=== PATIENT | female | born 1945 | race Caucasian/White ===

== ENCOUNTER 2021-06-15 14:06 | Inpatient (IN) ==
[2021-06-15] MEDS ORDERED: SODIUM CHLORIDE 0.9% 500 ML IV STA (14:11)
[2021-06-15] MEDS ORDERED: NITROGLYCERIN 2% OINTMENT 30GM TUBE EXT STA (14:11)
--- NOTE | 2021-06-15 14:36 | Emergency Department Note ---
Impression & Plan Acute respiratory failure, Hypoxia, Acute renal insufficiency, Acidosis, lactic, RLL pneumonia ED Provider Note Name: DAPHNEY MONDRAGON Age: 75 Sex: F Arrives Via: Walk-In Informant: Patient, daughter ED Provider: Gerry Connelly MD Chief Complaint: Shortness of breath Impression: As per impression above Medical Decision Making: Ill-appearing 75-year-old female with a history of COPD mixed hyperlipidemia hypertension arrives for evaluation of worsening shortness of breath over the last week. She has been ill for roughly a week the last few days have been sev erely worse. She is not eating and she is very weak. She uses oxygen at home but this is no longer helping her with her shortness of breath. On arrival she was 82% on her 2 L nasal cannula. She has very poor lung sounds and is working very hard to breathe. She was placed on higher level nasal cannula oxygen started coming up but she is still quite dyspneic. Given her exam and her increased work of breathing it was felt BiPAP would be beneficial. Placing her on this she is much improved and is comfortable now. ABG reveals acidosis with moderate CO2 elevation consistent with some hypercapnia. However she does not have a much in the way of diffuse wheezing this will hold off on steroids at this time. Her chest x-ray does show a right lower lobe infiltrate and I suspect that we are dealing with a bacterial pneumonia. She was given empiric cefepime IV and MRSA nasal swab was sent to determine if further antibiotics for MRSA coverage. I will note that on arrival patient was ordered 30 mL/kg IV fluids for sepsis management in the setting of dehydrated patient with evidence of pneumonia by exam. Furthermore she has hypotension of 96/60 which is significantly low for her consistent with her sepsis appearance. After discussion with pharmacist they did advise adding on doxycycline for atypical coverage as well. She does not have any clear evidence of ACS dissection or does she have history of PE. While her BNP is somewhat elevated she has no history of CHF by exam she is dehydrated. Prior Medical Record and Triage/Nursing Notes reviewed by Me Additional history obtained from chart and daughter Differentials:Reactive airway disease, pneumonia, pneumothorax, COPD, CHF, infections, cardiac ischemia, pulmonary embolism, musculoskeletal, gastrointestinal, as well as other pathologies. amongst other pathologies. Vital Signs: reviewed and remarkable for hypoxia tachycardia hypotension Interventions: BiPAP, cefepime, doxycycline IV, 30 mL/kg IV fluids Labs:Reviewed and remarkable for lactic acidosis, Imagin view chest x-ray reveals right lower lobe infiltrate EKG:Per My Interpretation: Indication Shortness of breath: Sinus Tach 117 bpm, qtc 641. No Ectopy. No Ischemia. Compared to EKG 06/17/20, no significant changes. Cardiac/Tele Monitoring: Cardiac Monitoring: An Order was placed for continuous cardiac monitoring. The monitor shows a rate of 90 with a normal sinus rhythm. Consults:Watson kesslerist Plan: Disposition:Hospitalization. Condition: Fair History of Present Illness:75-year-old female arrives for evaluation of shortne ss of breath. For the last week she has developed worsening shortness of breath weakness and confusion. She is unable to ambulate around the house. She uses 2.5 L nasal cannula at all times for her COPD however she has not not been tolerating this recently requiring increasing amounts of oxygen. She has not been eating or drinking as she feels too weak and tired. Symptoms include shortness of breath, productive cough, junky cough, difficulty breathing. She has had no chest pain, syncope, headache, sore throat, abdominal pain, back pain, leg swelling, urinary/bowel symptoms. She has no history of severe symptoms like this before though did about 1 year ago have COVID-19. Patient with no recent changes to medications nor any recent antibiotics. Per daughter she has not been on any recent steroids. She is an inhaler at home which has not been helping the symptoms. ROS: See above HPI for pertinent positives & negatives. A total of 10 systems reviewed and were otherwise negative. Past Medical History:See Below Past Surgical History:See Below Family History:See Below Social History:See Below Home Medications:See Below Allergies:See Below Vitals:Blood Pressure: 93/60, Pulse 116, RR 22, T 36.0C, O2 86% on 6L NC Physical Exam: GENERAL: Patient is ills/cachectic appearing and in moderate distress. EYES: No scleral icterus, unremarkable pupils. ENT: Mucous membranes dry, no nasal congestion. NECK: No masses appreciated, nomeningismus, trachea is midline. RESPIRATORY: Tachypnea, dyspnea, decreased breath sounds throughout with crackles all lung diaz CARDIOVASCULAR: Tachy.No murmurs, rubs, gallops appreciated. GASTROINTESTINAL: Abdomen soft, non-tender, no peritonitis.Bowel sounds positive.No masses appreciated. BACK: No midline tenderness, no CVA tenderness EXTREMITIES: Normal motion all extremities, no cyanosis, no edema. NEUROLOGIC: Tired, mildly confused, generalized weakness, no acute motor or sensory deficits, no focal weakness, cranial nerves grossly intact. SKIN: No rash, no jaundice, no diaphoresis. PSYCH: Appropriate GCS: 15 ED Course: Times/Reassessments: Patient appears vastly improved once on BiPAP she is comfortable she is breathing without distress Critical Care: I have personally spent 45 minutes of critical care time in the direct management of this patient. Acute respiratory failure requiring BiPAP for grisel del cid secondary to right lower lobe pneumonia. This was a life/limb threatening event. This 45 minutes is in excess of all separately billable procedures. eGrry Connelly MD Past Med/Surg History Medical History COPD (chronic obstructive pulmonary disease) COVID-19 Hyperlipidemia Hypertension Surgical History Hx of tubal ligation S/P cholecystectomy Social History Smoking Status: Never smoker Preferred Language: Slovenian Feels Safe at Home: Yes Allergies Allergies Allergy/AdvReac Type Severity Reaction Status Date / Time grape Allergy Intermediate edema of Verified 06/15/21 16:26 lips Home Meds Home Medications Medication Instructions Recorded Confirmed albuterol sulfate 90 mcg/actuation 2 puff INHALATION Q6H PRN gm 03/14/19 06/15/21 aerosol inhaler aspirin 81 mg tablet,delayed 81 mg PO QAM tab 03/14/19 06/15/21 release budesonide-formoterol HFA 160 2 puffs INHALATION BID #1 gm 03/14/19 06/15/21 mcg-4.5 mcg/actuation aerosol inhaler multivitamin (Daily Multi-Vitamin) 1 tab PO QAM 03/14/19 06/15/21 ipratropium 20 mcg-albuterol 100 1 puff INHALATION QID 06/17/20 06/15/21 mcg/actuation mist for inhalation (Combivent Respimat) lisinopril 40 mg tablet 40 mg PO QAM 06/17/20 06/15/21 oxybutynin chloride 10 mg 10 mg PO QAM 06/17/20 06/15/21 tablet,extended release 24 hr rosuvastatin 10 mg tablet 10 mg PO QPM 06/17/20 06/15/21 sertraline 100 mg tablet 100 mg PO QAM 06/17/20 06/15/21 felodipine 2.5 mg tablet,extended 2.5 mg PO DAILY 06/15/21 06/15/21 release 24 hr metoprolol succinate 50 mg 50 mg PO BID 06/15/21 06/15/21 tablet,extended release 24 hr risedronate 35 mg tablet 35 mg PO WK 06/15/21 06/15/21 Results & Data (ED) Vital Signs Vital Signs - 24 hr 06/15/21 14:10 06/15/21 14:15 06/15/21 14:57 Temperature 36.0 C L Temperature Source Temporal Artery Scan Pulse Rate 116 H Pulse Rate [Left Finger] Pulse Rhythm [Left Finger] Pulse Strength [Left Finger] Respiratory Rate 22 Respiratory Effort / Characteristics Non-Labored Spontaneous Respiratory Depth Normal Respiratory Pattern Regular Blood Pressure 93/60 L Blood Pressure [Left Arm] Blood Pressure Mean 71 Blood Pressure Mean [Left Arm] Blood Pressure Position [Left Arm] Pulse Oximetry 82 L 86 L 94 Oxygen Delivery Method Nasal Cannula Nasal Cannula Nasal Cannula Oxygen Flow Rate 2 6 4 Fraction of Inspired Oxygen SaO2/FiO2 Ratio Sepsis Recent Fever Within 48 Hours No Sepsis New/Unexplained Change in Mental Status No Sepsis Action Taken by Nursing No Action Required 06/15/21 15:20 06/15/21 16:00 06/15/21 16:20 Temperature Temperature Source Pulse Rate 114 H Pulse Rate [Left Finger] 105 H Pulse Rhythm [Left Finger] Regular Pulse Strength [Left Finger] Normal Respiratory Rate 24 18 Respiratory Effort / Characteristics Spontaneous Short of Breath Non-Labored Respiratory Depth Shallow Normal Respiratory Pattern Tachypnea Regular Blood Pressure Blood Pressure [Left Arm] 118/79 Blood Pressure Mean Blood Pressure Mean [Left Arm] 92 Blood Pressure Position [Left Arm] Lying Pulse Oximetry 96 98 Oxygen Delivery Method BiPAP Oxygen Flow Rate Fraction of Inspired Oxygen 70 70 50 SaO2/FiO2 Ratio 140 Sepsis Recent Fever Within 48 Hours Sepsis New/Unexplained Change in Mental Status Sepsis Action Taken by Nursing Laboratory Data Result diagrams: 06/15/21 15:03 06/15/21 15:03 Lab Results 06/15/21 06/15/2121 Range/Units 15:00 15:03 15:03 WBC 8.44 (4.8-10.8) K/uL RBC 4.65 (4.2-5.4) M/uL Hgb 14.2 (12.0-16.0) g/dL Hct 43.5 (37-47) % MCV 93.5 (80-100) fL MCH 30.5 (25-34) pg MCHC 32.6 (32-36) g/dL RDW Std Deviation 46.2 (36.4-46.3) fL RDW Coeff of Evonne 13.5 (11.5-14.5) % Plt Count 292 (130-400) K/uL MPV 11.1 H (7.4-10.4) fL Immature Gran % (Auto) 1.5 % Neut % (Auto) 81.0 % Lymph % (Auto) 6.9 % [place] % (Auto) 10.0 % Eos % (Auto) 0.1 % Baso % (Auto) 0.5 % Neut # (Auto) 6.84 H (1.4-6.5) K/uL Lymph # (Auto) 0.58 L (1.2-3.4) K/uL [place] # (Auto) 0.84 H (0.11-0.59) K/uL Eos # (Auto) 0.01 (0-0.5) K/uL Baso # (Auto) 0.04 (0-0.2) K/uL Immature Gran # (Auto) 0.13 H (0.00-0.02) K/uL Absolute Nucleated RBC 0.02 H (0-0) K/uL Nucleated RBC % (auto) 0.3 % VBG pH 7.26 L (7.36-7.41) VBG pCO2 76 H (38-50) mmHg VBG pO2 44 mmHg VBG HCO3 33 mmol/L VBG O2 Saturation 72.4 % VBG Base Excess 3.5 mEq/L Barometric Pressure 736.3 mm/Hg Sodium 142 (136-145) mmol/L Potassium 3.6 (3.5-5.1) mmol/L Chloride 98 (98-107) mmol/L Carbon Dioxide 31 (21-32) mmol/L Anion Gap 13.0 H (3-11) BUN 30 H (7-18) mg/dl Creatinine 1.43 H (0.6-1.2) mg/dl Est Cr Clr Drug Dosing 19.2 ml/min Est GFR ( Amer) 41.4 ml/min Est GFR (Non-Af Amer) 35.7 ml/min BUN/Creatinine Ratio 21.0 H (10-20) Glucose 151 H (70-99) mg/dl Lactate (0.4-2.0) mmol/L Calcium 10.2 H (8.5-10.1) mg/dl Total Bilirubin 0.6 (0.2-1) mg/dl AST 43 H (15-37) U/L ALT 32 (12-78) Alkaline Phosphatase 55 (45-117) U/L Troponin I < 0.015 (0-0.045) ng/ml NT-Pro-B Natriuret Pep 4191 H (0-900) pg/ml Total Protein 7.9 (6.4-8.2) gm/dl Albumin 3.2 L (3.4-5.0) gm/dl Globulin 4.7 H (2.5-4.0) gm/dl Albumin/Globulin Ratio 0.7 L (0.9-2) Lipase 42 L (73-393) U/L Adenovirus (PCR) (NotDetected) B. pertussis DNA (PCR) (NotDetected) B.parapertussis DNA PCR (NotDetected) C. pneumoniae DNA (PCR) (NotDetected) Coronavirus OC43 (PCR) (NotDetected) Coronavirus HKU1 (PCR) (NotDetected) Coronavirus 229E (PCR) (NotDetected) SARS-CoV-2 (PCR) (NotDetected) Coronavirus NL63 (PCR) (NotDetected) Human Metapneumovir PCR (NotDetected) Influenza A (H3) PCR (NotDetected) Influenza Type B (PCR) (NotDetected) M. pneumoniae (PCR) (NotDetected) Parainfluenza 1 (PCR) (NotDetected) Parainfluenza 2 (PCR) (NotDetected) Parainfluenza 3 (PCR) (NotDetected) Parainfluenza 4 (PCR) (NotDetected) RSV (PCR) (NotDetected) Entero/Rhino (PCR) (NotDetected) 06/15/21 06/15/21 Range/Units 15:03 15:09 WBC (4.8-10.8) K/uL RBC (4.2-5.4) M/uL Hgb (12.0-16.0) g/dL Hct (37-47) % MCV (80-100) fL MCH (25-34) pg MCHC (32-36) g/dL RDW Std Deviation (36.4-46.3) fL RDW Coeff of Evonne (11.5-14.5) % Plt Count (130-400) K/uL MPV (7.4-10.4) fL Immature Gran % (Auto) % Neut % (Auto) % Lymph % (Auto) % [place] % (Auto) % Eos % (Auto) % Baso % (Auto) % Neut # (Auto) (1.4-6.5) K/uL Lymph # (Auto) (1.2-3.4) K/uL [place] # (Auto) (0.11-0.59) K/uL Eos # (Auto) (0-0.5) K/uL Baso # (Auto) (0-0.2) K/uL Immature Gran # (Auto) (0.00-0.02) K/uL Absolute Nucleated RBC (0-0) K/uL Nucleated RBC % (auto) % VBG pH (7.36-7.41) VBG pCO2 (38-50) mmHg VBG pO2 mmHg VBG HCO3 mmol/L VBG O2 Saturation % VBG Base Excess mEq/L Barometric Pressure mm/Hg Sodium (136-145) mmol/L Potassium (3.5-5.1) mmol/L Chloride (98-107) mmol/L Carbon Dioxide (21-32) mmol/L Anion Gap (3-11) BUN (7-18) mg/dl Creatinine (0.6-1.2) mg/dl Est Cr Clr Drug Dosing ml/min Est GFR ( Amer) ml/min Est GFR (Non-Af Amer) ml/min BUN/Creatinine Ratio (10-20) Glucose (70-99) mg/dl Lactate 3.6 H* (0.4-2.0) mmol/L Calcium (8.5-10.1) mg/dl Total Bilirubin (0.2-1) mg/dl AST (15-37) U/L ALT (12-78) Alkaline Phosphatase (45-117) U/L Troponin I (0-0.045) ng/ml NT-Pro-B Natriuret Pep (0-900) pg/ml Total Protein (6.4-8.2) gm/dl Albumin (3.4-5.0) gm/dl Globulin (2.5-4.0) gm/dl Albumin/Globulin Ratio (0.9-2) Lipase (73-393) U/L Adenovirus (PCR) Not Detected (NotDetected) B. pertussis DNA (PCR) Not Detected (NotDetected) B.parapertussis DNA PCR Not Detected (NotDetected) C. pneumoniae DNA (PCR) Not Detected (NotDetected) Coronavirus OC43 (PCR) Not Detected (NotDetected) Coronavirus HKU1 (PCR) Not Detected (NotDetected) Coronavirus 229E (PCR) Not Detected (NotDetected) SARS-CoV-2 (PCR) Not Detected (NotDetected) Coronavirus NL63 (PCR) Not Detected (NotDetected) Human Metapneumovir PCR Not Detected (NotDetected) Influenza A (H3) PCR DETECTED A* (NotDetected) Influenza Type B (PCR) Not Detected (NotDetected) M. pneumoniae (PCR) Not Detected (NotDetected) Parainfluenza 1 (PCR) Not Detected (NotDetected) Parainfluenza 2 (PCR) Not Detected (NotDetected) Parainfluenza 3 (PCR) Not Detected (NotDetected) Parainfluenza 4 (PCR) Not Detected (NotDetected) RSV (PCR) Not Detected (NotDetected) Entero/Rhino (PCR) Not Detected (NotDetected) Administered Medications Doxycycline Hyclate 100 mg/ (Dextrose) 110 mls @ 50 mls/hr IV NOW STA Stop: 06/15/21 16:50 Last Admin: 06/15/21 15:39 Dose: 50 mls/hr Documented by: [id number] Discontinued Medications Sodium Chloride (Nss) 500 mls @ 999 mls/hr IV .Q31M STA Stop: 06/15/21 14:41 Last Admin: 06/15/21 15:24 Dose: Not Given Documented by: [id number] Sodium Chloride (Nss 1000ml) 1,000 mls @ 999 mls/hr IV .Q1H1M ONE Stop: 06/15/21 15:37 Last Infusion: 06/15/21 16:28 Dose: 0 mls/hr Documented by: [id number] Admin: 06/15/21 15:24 Dose: 999 mls/hr Documented by: [id number] Sodium Chloride (Nss) 500 mls @ 999 mls/hr IV .Q31M ONE Stop: 06/15/21 15:07 Last Infusion: 06/15/21 16:29 Dose: 0 mls/hr Documented by: [id number] Admin: 06/15/21 15:24 Dose: 999 mls/hr Documented by: [id number] Cefepime HCl (Maxipime) 2,000 mg in 20 mls @ 5 mls/min IV NOW STA; Protocol Stop: 06/15/21 14:41 Last Admin: 06/15/21 15:24 Dose: 5 mls/min Documented by: [id number] Nitroglycerin (Nitroglycerin 2% Ointment 30gm Tube) 0.5 inch EXT NOW STA Stop: 06/15/21 14:12 Last Admin: 06/15/21 15:24 Dose: Not Given Documented by: [id number] Imaging Data Radiologist's Impression: Chest X-Ray 06/15/21 14:11 XR chest 1V portable HISTORY: 75 years-old Female Chest Pain Atypical chest pain COMPARISON: Chest radiograph 06/17/2020, chest CT 09/23/2016 TECHNIQUE: Portable AP view of the chest FINDINGS: The cardiomediastinal and hilar silhouettes are unchanged. Emphysema with severe bullous changes of the left lung base again noted. No pneumothorax or large pleural effusion. Patchy airspace opacities of the right lung base, new from prior. Mild interstitial coarsening throughout the right lung has progressed. Degenerative changes of the shoulders and spine. IMPRESSION: 1. Right basilar opacities are suggestive of pneumonia versus aspiration pneumonitis. 2. Severe emphysema. ACT 112: Negative or not required by law. The above report was generated using voice recognition software. It may contain grammatical, syntax or spelling errors. Electronically signed by: Bhargav Gage M.D. 06/15/2021 2:40 PM Discharge Plan Visit Data Chief Complaint: Respiratory Problems Stated Complaint: BAD COLD/COPD/SOB ED Provider: Gerry Connelly Discharge Problem: Acute respiratory failure, Hypoxia, Acute renal insufficiency, Acidosis, lactic, RLL pneumonia Forms Stand Alone Forms: [employer] Prescriptions Prescriptions: No Action Symbicort 160-4.5 mcg/actuation HFA aerosol inhaler 2 puffs inhalation BID Qty: 1 RF: 0 albuterol sulfate 90 mcg/actuation HFA aerosol inhaler 2 puff inhalation Q6H PRN (Reason: Shortness Of Breath Or Wheezing) RF: 0 aspirin 81 mg tablet,delayed release (DR/EC) 81 mg PO QAM RF: 0 multivitamin [Daily Multi-Vitamin] tablet 1 tab PO QAM RF: 0 oxybutynin chloride 10 mg tablet extended release 24hr 10 mg PO QAM RF: 0 sertraline 100 mg tablet 100 mg PO QAM RF: 0 lisinopril 40 mg tablet 40 mg PO QAM RF: 0 rosuvastatin 10 mg tablet 10 mg PO QPM RF: 0 Combivent Respimat 20-100 mcg/actuation mist 1 puff INHALATION QID RF: 0 felodipine 2.5 mg tablet extended release 24 hr 2.5 mg PO DAILY RF: 0 metoprolol succinate 50 mg tablet extended release 24 hr 50 mg PO BID RF: 0 risedronate 35 mg tablet 35 mg PO WK RF: 0 Referrals Referrals: Drake Saini DO [Primary Care Provider] - Discharge Problem: Acute respiratory failure Qualifiers: Respiratory failure complication: hypoxia and hypercapnia Qualified Code(s): J96.01 - Acute respiratory failure with hypoxia RLL pneumonia Qualifiers: Pneumonia type: due to unspecified organism Qualified Code(s): J18.9 - Pneumonia, unspecified organism
[2021-06-15] MEDS ORDERED: SODIUM CHLORIDE 0.9% 500 ML IV ONE (14:37)
[2021-06-15] MEDS ORDERED: SODIUM CHLORIDE 0.9% 1000ML 1,000 ML IV ONE (14:37)
[2021-06-15] MEDS ORDERED: CEFEPIME 2,000 MG/20 ML VIAL IV STA (14:38)
[2021-06-15] MEDS ORDERED: DOXYCYCLINE HYCLATE 100 MG in DEXTROSE 5% 100 ML IV STA (14:39)
--- NOTE | 2021-06-15 14:42 | XRay Report ---
XR chest 1V portable HISTORY: 75 years-old Female Chest Pain Atypical chest pain COMPARISON: Chest radiograph 06/17/2020, chest CT 09/23/2016 TECHNIQUE: Portable AP view of the chest FINDINGS: The cardiomediastinal and hilar silhouettes are unchanged. Emphysema with severe bullous changes of t he left lung base again noted. No pneumothorax or large pleural effusion. Patchy airspace opacities o f the right lung base, new from prior. Mild interstitial coarsening throughout the right lung has pro gressed. Degenerative changes of the shoulders and spine. IMPRESSION: 1. Right basilar opacities are suggestive of pneumonia versus aspiration pneumonitis. 2. Severe emphysema. ACT 112: Negative or not required by law. The above report was generated using voice recognition software. It may contain grammatical, syntax o r spelling errors. Electronically signed by: Bhargav Gage M.D. 06/15/2021 2:40 PM
[2021-06-15 15:12] LABS: Hematocrit (blood only) 43.5 % (37-47); Hemoglobin 14.2 g/dL (12.0-16.0); Mean Corpuscular Hemoglobin 30.5 pg (25-34); Mean Corpuscular Hgb Conc 32.6 g/dL (32-36); Mean Corpuscular Volume 93.5 fL (80-100); Mean Platelet Volume 11.1 fL (7.4-10.4); Nucleated RBC # (auto) 0.02 K/uL (0-0); Nucleated RBC % (auto) 0.3 %; Platelet Count 292 K/uL (130-400); RDW Coefficient of Variation 13.5 % (11.5-14.5); RDW Standard Deviation 46.2 fL (36.4-46.3); Red Blood Count 4.65 M/uL (4.2-5.4); White Blood Count 8.44 K/uL (4.8-10.8)
[2021-06-15 15:31] LABS: Alanine Aminotransferase 32 (12-78); Albumin Level 3.2 gm/dl (3.4-5.0); Aspartate Aminotransferase 43 U/L (15-37); Blood Urea Nitrogen 30 mg/dl (7-18); Calcium 10.2 mg/dl (8.5-10.1); Carbon Dioxide 31 mmol/L (21-32); Chloride 98 mmol/L (98-107); Creatinine Clr Calc Pharmacy 19.2 ml/min; Est GFR (African American) 41.4 ml/min; Est GFR (Non-African American) 35.7 ml/min; Glucose 151 mg/dl (70-99); Lipase 42 U/L (73-393); Potassium 3.6 mmol/L (3.5-5.1); Sodium 142 mmol/L (136-145)
[2021-06-15 15:35] LABS: Albumin Globulin Ratio 0.7 (0.9-2); Alkaline Phosphatase 55 U/L (45-117); Bilirubin,Total 0.6 mg/dl (0.2-1); Globulin 4.7 gm/dl (2.5-4.0); NT Pro B Type Natriuretic Pept 4191 pg/ml (0-900); Total Protein 7.9 gm/dl (6.4-8.2); Troponin I < 0.015 ng/ml (0-0.045)
[2021-06-15 15:38] LABS: Basophils # (auto) 0.04 K/uL (0-0.2); Basophils % (auto) 0.5 %; Eosinophils # (auto) 0.01 K/uL (0-0.5); Eosinophils % (auto) 0.1 %; Immature Granulocytes # (auto) 0.13 K/uL (0.00-0.02); Immature Granulocytes % (auto) 1.5 %; Lymphocytes # (auto) 0.58 K/uL (1.2-3.4); Lymphocytes % (auto) 6.9 %; Monocytes # (auto) 0.84 K/uL (0.11-0.59); Neutrophils # (auto) 6.84 K/uL (1.4-6.5)
[2021-06-15 16:04] LABS: Base Excess VBG 3.5 mEq/L; Oxygen Saturation VBG 72.4 %; pH VBG 7.26 (7.36-7.41)
[2021-06-15 16:17] LABS: Adenovirus PCR Not Detected (NotDetected); Bordetella parapertussis PCR Not Detected (NotDetected); Bordetella pertussis PCR Not Detected (NotDetected); Chlamydia pneumoniae PCR Not Detected (NotDetected); Coronavirus 229E PCR Not Detected (NotDetected); Coronavirus CoV-2 (COVID19)PCR Not Detected (NotDetected); Coronavirus HKU1 PCR Not Detected (NotDetected); Coronavirus NL63 PCR Not Detected (NotDetected); Coronavirus OC43PCR Not Detected (NotDetected); Human Metapneumovirus PCR Not Detected (NotDetected); Influenza B PCR Not Detected (NotDetected); Mycoplasma pneumoniae PCR Not Detected (NotDetected); Parainfluenza Virus 1 PCR Not Detected (NotDetected); Parainfluenza Virus 2 PCR Not Detected (NotDetected); Parainfluenza Virus 3 PCR Not Detected (NotDetected); Parainfluenza Virus 4 PCR Not Detected (NotDetected); Respiratory Syncytial VirusPCR Not Detected (NotDetected); Rhinovirus/Enterovirus PCR Not Detected (NotDetected)
[2021-06-15 16:41] LABS: Influenza A (H3) PCR DETECTED (NotDetected)
--- NOTE | 2021-06-15 19:26 | History & Physical Report ---
Date of Service June 15, 2021 Assessment & Plan (1) Acute hypercapnic respiratory failure: (2) Hypoxia: (3) Pneumonia and influenza: (4) ALESIA (acute kidney injury): (5) COPD (chronic obstructive pulmonary disease): (6) Hypertension: (7) Hyperlipidemia: Plan: Acute on Chronic respiratory failure with hypoxia: -2/2 influenza + bacterial pneumonia -COVID neg -will start the pt on renally dosed Tamiflu (even though it has be more than 72hrs) -MRSA swab is negative -will continue the pt on doxy and cefepime -procal pending - repeat Lactic acid is better -ABG: hypercapnic acidosis ----- due to hx of COPD with hypercapnia and wheezing on exam will continue to the pt on Bipap, duoneb q6hr and solumedrol 40mg Q12hrs -at home pt is on2.5L oxygen - wean Bipap as tolerates - ABG nay AM or when starting to wean off of BiPAP - NPO for now: okay for sip of water/meds with water HTN and ALESIA: -low normal BP - will hold Lisinopril for now - trend BMP HFmrEF and elevated pro-BNP: -pt is euvolemic - will continue to metoprolol Anxiety: -c/w Zoloft Urinary incontinence and HLD: -continue home meds DVT ppx: Heparin PT/OT ordered Diet: NPO for now due to severe hypercapnia Code status: Full code History of Present Illness Chief Complaint: SOB Primary Care Provider: Drake Saini DO Pt is a 75 y/o F with hx of COPD on home oxygen 2.5L, Hx of COVID pneumonia (in 2019), Pulm HTN, HFmrEF, cardiomyopathy, HTN, Anxiety, and Osteoporosis admitted for respiratory failure with hypoxia. Per daughter and pt: pt has been feeling SOB, cough (dry), decreased appetite for 1 week. She denied any fever, chills, N/V, diarrhea or CP. Denied any COVID exposure and received one shot of moderna last month. Allergies Allergy/AdvReac Type Severity Reaction Status Date / Time grape Allergy Intermediate edema of Verified 06/15/21 16:26 lips Home Medications Medication Instructions Recorded Confirmed Type albuterol sulfate 90 mcg/actuation 2 puff INHALATION Q6H PRN gm 03/14/19 06/15/21 History aerosol inhaler aspirin 81 mg tablet,delayed 81 mg PO QAM tab 03/14/19 06/15/21 History release budesonide-formoterol HFA 160 2 puffs INHALATION BID #1 gm 03/14/19 06/15/21 History mcg-4.5 mcg/actuation aerosol inhaler multivitamin (Daily Multi-Vitamin) 1 tab PO QAM 03/14/19 06/15/21 History ipratropium 20 mcg-albuterol 100 1 puff INHALATION QID 06/17/20 06/15/21 History mcg/actuation mist for inhalation (Combivent Respimat) lisinopril 40 mg tablet 40 mg PO QAM 06/17/20 06/15/21 History oxybutynin chloride 10 mg 10 mg PO QAM 06/17/20 06/15/21 History tablet,extended release 24 hr rosuvastatin 10 mg tablet 10 mg PO QPM 06/17/20 06/15/21 History sertraline 100 mg tablet 100 mg PO QAM 06/17/20 06/15/21 History felodipine 2.5 mg tablet,extended 2.5 mg PO DAILY 06/15/21 06/15/21 History release 24 hr metoprolol succinate 50 mg 50 mg PO BID 06/15/21 06/15/21 History tablet,extended release 24 hr risedronate 35 mg tablet 35 mg PO WK 06/15/21 06/15/21 History Past Med/Surg History Medical History COPD (chronic obstructive pulmonary disease) COVID-19 Hyperlipidemia Hypertension Surgical History Hx of tubal ligation S/P cholecystectomy Social History Smoking Status: Never smoker Preferred Language: Hebrew Feels Safe at Home: Yes Review of Systems Review of Systems: At least 10 Review of systems were reviewed and all negative except as indicated in HPI Physical Exam Physical Exam: Cachetic (chronically low BMI), moderate respiratory distress, BiPAP mask in place HEENT: NCAT, EOMI, atraumatic Cardiac: normal S1/S2, no murmur Lungs: diffusely decreased BS with b/l wheezing and rales Abd: ND, soft, NT Skin: no ulcers or rash MSK: no edema Psych: AAOX3 Results & Data Results & Data ([facility]) Vital Signs (Past 12 Hours) Vital Signs Temp Pulse Pulse Resp BP BP Pulse Ox 06/15/21 18:05 107 H 30 H 97 06/15/21 16:00 105 H 18 118/79 98 06/15/21 15:20 114 H 30 H 96 06/15/21 14:57 94 06/15/21 14:15 86 L 06/15/21 14:10 36.0 C L 116 H 22 93/60 L 82 L Laboratory Results Short CBC 06/15/21 Range/Units 15:03 WBC 8.44 (4.8-10.8) K/uL Hgb 14.2 (12.0-16.0) g/dL Hct 43.5 (37-47) % Plt Count 292 (130-400) K/uL BMP 06/15/21 15:03 Sodium 142 Potassium 3.6 Chloride 98 Carbon Dioxide 31 BUN 30 H Creatinine 1.43 H Glucose 151 H Calcium 10.2 H Cardiac Enzymes 06/15/21 Range/Units 15:03 Troponin I < 0.015 (0-0.045) ng/ml Liver Function 06/15/21 Range/Units 15:03 Total Bilirubin 0.6 (0.2-1) mg/dl AST 43 H (15-37) U/L ALT 32 (12-78) Alkaline Phosphatase 55 (45-117) U/L Albumin 3.2 L (3.4-5.0) gm/dl Diagnostic Findings Chest X-Ray 06/15/21 14:11 XR chest 1V portable HISTORY: 75 years-old Female Chest Pain Atypical chest pain COMPARISON: Chest radiograph 06/17/2020, chest CT 09/23/2016 TECHNIQUE: Portable AP view of the chest FINDINGS: The cardiomediastinal and hilar silhouettes are unchanged. Emphysema with severe bullous changes of the left lung base again noted. No pneumothorax or large pleural effusion. Patchy airspace opacities of the right lung base, new from prior. Mild interstitial coarsening throughout the right lung has progressed. Degenerative changes of the shoulders and spine. IMPRESSION: 1. Right basilar opacities are suggestive of pneumonia versus aspiration pneumonitis. 2. Severe emphysema. ACT 112: Negative or not required by law. The above report was generated using voice recognition software. It may contain grammatical, syntax or spelling errors. Electronically signed by: Bhargav Gage M.D. 06/15/2021 2:40 PM Code Status & VTE Plan VTE Prophylaxis Plan VTE Prophylaxis will be ordered: Yes (1) COPD (chronic obstructive pulmonary disease) COPD type: COPD with acute exacerbation Qualified Code(s): J44.1 - Chronic obstructive pulmonary disease with (acute) exacerbation
[2021-06-15] MEDS ORDERED: ROSUVASTATIN CALCIUM 10 MG TAB PO SCH (21:00)
[2021-06-15] MEDS ORDERED: METOPROLOL SUCC 50MG EXT REL TAB PO SCH (21:00)
[2021-06-15] MEDS ORDERED: ACETAMINOPHEN 325 MG TAB PO PRN (23:26)
[2021-06-16] MEDS: HEPARIN SOD 5,000 UNIT/0.5 ML VIAL SQ SCH ×2 (00:04→11:52)
[2021-06-16] MEDS: OSELTAMIVIR PHOSPHATE SUSP 30 MG/5 ML UDP PO SCH ×2 (00:04→11:28)
[2021-06-16] MEDS ORDERED: ALBUT/IPRATROP 3MG/0.5MG NEB 3 ML VIAL NEB SCH (01:00)
[2021-06-16] MEDS ORDERED: methylPREDNISolone 40 MG in SYRINGE 0 ML IV SCH (06:00)
[2021-06-16] MEDS ORDERED: DOXYCYCLINE HYCLATE 100 MG in DEXTROSE 5% 100 ML IV SCH ×2 (06:00→16:00)
[2021-06-16 06:28] LABS: Base Excess ABG 0.4 mEq/L (-9-1.8); HCO3 ABG 31 mmol/L (19-24); Oxygen Saturation ABG 93.4 % (90-95); PCO2 ABG 79 mmHg (35-46); PO2 ABG 74 mmHg (80-95); pH ABG 7.21 (7.35-7.45)
[2021-06-16 06:29] LABS: Allen Test POS (Pos)
[2021-06-16 06:34] LABS: Hemoglobin 13.6 g/dL (12.0-16.0); Mean Corpuscular Hemoglobin 30.2 pg (25-34); Mean Corpuscular Hgb Conc 31.6 g/dL (32-36); Mean Corpuscular Volume 95.3 fL (80-100); Mean Platelet Volume 11.5 fL (7.4-10.4); Nucleated RBC # (auto) 0.04 K/uL (0-0); Nucleated RBC % (auto) 0.3 %; Platelet Count 306 K/uL (130-400); RDW Standard Deviation 48.5 fL (36.4-46.3); Red Blood Count 4.51 M/uL (4.2-5.4); White Blood Count 11.72 K/uL (4.8-10.8)
[2021-06-16] MEDS ORDERED: SODIUM CHLORIDE 0.9% 1000ML 1,000 ML IV ONE (06:34)
[2021-06-16] MEDS ORDERED: SODIUM CHLORIDE 0.9% 500 ML IV ONE (06:39)
[2021-06-16] MEDS ORDERED: XOPENEX/ATROVENT 1.25mg/0.5MG NEB COMBO NEB STA (06:46)
[2021-06-16] MEDS ORDERED: LEVALBUTEROL 1.25MG/0.5ML NEB INH STA (07:00)
[2021-06-16] MEDS ORDERED: IPRATROPIUM BROMIDE NEB SOLN 0.02% 2.5 ML VIAL INH STA (07:00)
[2021-06-16 07:05] LABS: ANC (manual) 10.29 K/uL (1.4-6.5); Basophils # (manual) 0.11 K/uL (0-0.2); Basophils % (manual) 0.9 %; Lymphocytes % (manual) 4.3 %; Metamyelocytes # (manual) 0.41 K/uL (0-0); Metamyelocytes % (manual) 3.5 %; Monocytes % (manual) 2.6 %; Myelocytes # (manual) 0.11 K/uL (0-0); Myelocytes % (manual) 0.9 %; Neutrophils # (manual) 10.29 K/uL (1.4-6.5); Neutrophils % (manual) 87.8 %
[2021-06-16 07:17] LABS: Albumin Level 2.4 gm/dl (3.4-5.0); BUN Creatinine Ratio 21.3 (10-20); Calcium 9.3 mg/dl (8.5-10.1); Creatinine Clr Calc Pharmacy 12.5 ml/min; Est GFR (African American) 24.7 ml/min; Est GFR (Non-African American) 21.3 ml/min
[2021-06-16 07:26] LABS: Albumin Globulin Ratio 0.6 (0.9-2); Bilirubin,Total 0.6 mg/dl (0.2-1); Globulin 4.3 gm/dl (2.5-4.0); Total Protein 6.7 gm/dl (6.4-8.2)
[2021-06-16] MEDS ORDERED: SODIUM CHLORIDE 0.45 % 1,000 ML IV SCH (07:30)
--- NOTE | 2021-06-16 07:53 | Communication Note ---
Date of Service: June 16, 2021 6:30 AM Patient lethargic as per RN. BP could not be obtained. SBP later noted to be 100s. AP Encephalopathy Multifactorial : worsening respiratory acidosis, COPD exacerbation secondary to aspiration pneumonia ARF, hypovolemia Tweak BiPAP settings, recheck ABG after 1 hour Change antibiotics to Unasyn Aspiration precautions, swallow eval Check UA, monitor creatinine response to IVF, check lactic acid Appropriate to hold BP meds for now given hypotension. Patient daughter (Ms. Ceci Griffin) updated of patient's critical condition over the phone. Patient daughter confirms aspiration concerns at home. CODE STATUS deescalated to DNR. Continue current medical management. She reports periodic updates from morning provider. Will relay to AM provider.
[2021-06-16] MEDS ORDERED: AMPICILLIN/SULBACTAM CONSULT ACTIVE PRN (08:11)
--- NOTE | 2021-06-16 08:42 | XRay Report ---
XR chest 1V portable CLINICAL HISTORY: low o2 TECHNIQUE: Single frontal radiograph of the chest was obtained. Comparison: Comparison is made to chest one view 06/15/2021 FINDINGS: No lines and tubes are seen. The cardiomediastinal silhouette is normal. Diffuse emphysematous change s are seen. No evidence of pleural effusion or pneumothorax. IMPRESSION: No acute chest disease. ACT 112: Negative or not required by law. Electronically signed by: Gael Girard M.D. 06/16/2021 8:40 AM
[2021-06-16 08:46] LABS: Base Excess ABG -0.8 mEq/L (-9-1.8); HCO3 ABG 27 mmol/L (19-24); Oxygen Saturation ABG 93.9 % (90-95); PCO2 ABG 61 mmHg (35-46); PO2 ABG 72 mmHg (80-95); pH ABG 7.27 (7.35-7.45)
[2021-06-16 08:48] LABS: Allen Test Pos (Pos)
[2021-06-16] MEDS ORDERED: UNIT DOSE COMPOUND PR ONE (08:57)
[2021-06-16] MEDS ORDERED: FLUTICASONE/VILANTEROL 100/25MCG 14 PUFFS/INHALER INH SCH (09:00)
[2021-06-16] MEDS ORDERED: SODIUM CHLORIDE 0.9% 500 ML IV SCH (09:00)
[2021-06-16] MEDS ORDERED: MULTIVITAMIN TAB PO SCH (09:00)
[2021-06-16] MEDS ORDERED: ASPIRIN 81 MG ECTAB PO SCH (09:00)
[2021-06-16] MEDS ORDERED: lisinopril 40 MG TAB PO SCH (09:00)
[2021-06-16] MEDS ORDERED: FELODIPINE 2.5 MG TABCR PO SCH (09:00)
[2021-06-16] MEDS ORDERED: LACTULOSE 200 GM, WATER, STERILE IRRIG 700 ML, BARCODE IDENTIFIER 1 EA PR SCH (09:00)
[2021-06-16] MEDS ORDERED: OXYBUTYNIN CHLORIDE XL 5 MG TABCR PO SCH (09:00)
[2021-06-16] MEDS ORDERED: AMPICILLIN/SULBACTAM SOD 3,000 MG in 0.9 % SODIUM CHLORIDE 100 ML IV SCH (09:00)
[2021-06-16] MEDS ORDERED: SERTRALINE HCL 100 MG TABLET PO SCH (09:00)
[2021-06-16 10:58] LABS: Appearance Urine Cloudy (Clear); Bacteria Urine Automated Negative (Negative); Bilirubin Urine Negative (Negative); Blood Urine 2+ (Negative); Color Urine Dark Yellow; Epithelial Cell Urine Auto >30 /lpf (0-5); Glucose Urine UA Negative (Negative); Ketones Urine 1+ (Negative); Leukocyte Esterase Urine Negative (Negative); Nitrite Urine Negative (Negative); Protein Urine 3+ (Negative); Specific Gravity Urine 1.019 (1.000-1.030); Urobilinogen Urine Negative (Negative); pH Urine 5.5 (4.5-7.5)
--- NOTE | 2021-06-16 12:09 | Ultrasound Report ---
RENAL ULTRASOUND CLINICAL HISTORY: elevated creatinine COMPARISON STUDY: None. TECHNIQUE: Sonography of the kidneys and the urinary bladder was performed. FINDINGS: Right kidney measures 7.9 cm in maximal dimension and the left measures 8.5 cm. There is no hydronephrosis. 1.7 cm cyst within the midpole of the right kidney is noted. Renal echogenicity is n ormal. There is minimal right renal cortical thinning. Urinary bladder is not well visualized on this examination, containing a Serrano catheter. IMPRESSION: No hydronephrosis. ACT 112: Negative or not required by law. Electronically signed by: Dheeraj Alejo M.D. 06/16/2021 12:08 PM
--- NOTE | 2021-06-16 12:32 | Consultation Report ---
NEPHROLOGY CONSULTATION REASON FOR CONSULTATION: Acute renal failure. HISTORY OF PRESENT ILLNESS: The patient is a 75-year-old female who has normal kidney function at [facility] of 1.0 as of December 2020. She presented to the hospital yesterday with shortness of breath, cou gh, decreased appetite. She was found to be hypoxic and she is currently on BiPAP and is very sick. Even at baseline, she has significant medical problems including COPD, on home oxygen, pulmonary hyp ertension, cardiomyopathy, congestive heart failure. At this time, she is found to be positive for i nfluenza, but negative for COVID. Also found to have pneumonia. She is hypotensive and at the time of examination, her blood pressure was only around 80 systolic. She is currently getting IV fluid. Blood work shows creatinine of 2.19 this morning, on admission last night it was 1.43. The patient i s quite sick and in significant respiratory distress and is unable to give any answers. She is too w eak and sick to answer any questions. As an outpatient, she does take lisinopril, but it does not ap pear she takes any type of diuretics. I am not sure whether she was taking any NSAIDs or not. MEDICATIONS: Home medication list was reviewed in detail and as per the reconciliation list. Of spe cial concern to nephrology, she was on lisinopril 40 daily. ALLERGIES: ALLERGY LIST REVIEWED AND IS PER THE RECONCILIATION LIST. PAST MEDICAL AND SURGICAL HISTORY: Severe COPD with pulmonary hypertension, on chronic home oxygen, history of COVID-19 pneumonia in 2019, hyperlipidemia, hypertension, cardiomyopathy with congestive h eart failure with preserved ejection fraction, hypertension, anxiety, osteoporosis, tubal ligation, c holecystectomy. SOCIAL HISTORY: No smoking now. She lives at home, uses chronic oxygen. REVIEW OF SYSTEMS: Unable to obtain as the patient is too weak and sick to answer any questions. Sh sandra has her eyes closed. As per the H and P and history given by daughter, she was having shortness of breath, cough, decreased appetite, increasing weakness for the last one week. She was not having an y nausea, vomiting, diarrhea, or chest pain. PHYSICAL EXAMINATION: GENERAL: Chronically ill-appearing elderly female who is in significant respiratory distress. She w as using accessory muscles of respiration, on BiPAP at this time. VITAL SIGNS: Blood pressure was around 80 systolic at my examination and has gone up since then and is now 99/54, 95% oxygen saturation on BiPAP, pulse rate 94 per minute, respiratory rate 41 per minut e, temperature 36.3. CHEST: Bilateral decreased breath sounds with rhonchi and crackles at the bases. Poor inspiratory e ffort. Limited quality of exam. CARDIOVASCULAR: S1 and S2, tachycardic. Soft systolic murmur heard. ABDOMEN: Soft, nontender. EXTREMITIES: Show no edema. NEUROLOGIC: Could not assess as the patient is too weak and sick to answer any questions. She had h er eyes closed. LABORATORY TESTS: At baseline, creatinine is 1.0 as of December 2020. At the time of admission yesterda y, it was 1.43 and this morning it is 2.19. BUN this morning is 47. Sodium 144, potassium 4.0, chlo ride 106, bicarbonate 29, magnesium 2.1. Ammonia 47, albumin 2.4. Influenza A was positive. Urine showed cloudy urine with ketones and 2+ blood and significant hyaline casts and epithelial cells. WB C count 11,000, hemoglobin 13.6. IMAGING DATA: Chest x-ray, no acute chest finding noted. Renal ultrasound is pending. ASSESSMENT AND PLAN: A 75-year-old female who has near normal baseline creatinine of 1.0 as of December 2020. She is admitted with [id number] respiratory failure with hypoxia and significant respira tory distress related with influenza infection and superimposed bacterial pneumonia. She appears to be quite decompensated with significant hypotension. I have been consulted for acute renal failure. Acute renal failure: This is in the setting of significant decompensation predominantly pulmonary wit h significant hypoxia and significant hypotension. Urine sediment is consistent with some degree of ATN, which is not surprising given her acute illness. At least for one day, I would continue with th e fluid, but we should not continue this mcfp. Renal ultrasound is pending, but low likelihood of obstructive uropathy. I would still consider putting a Serrano catheter for better monitoring of in put, output, and the fact the patient is very weak and distressed at this time. Avoid nephrotoxic ag ent. Continue to hold lisinopril. Do not use diuretics for the time being. Do check total CK as the re is always significant risk of rhabdomyolysis in influenza patient. Her renal prognosis is predomi nantly related with her recovery from cardiorespiratory issues. I will continue to follow the lopez salazar Job ID: [id number]
[2021-06-16] MEDS ORDERED: IPRATROPIUM BROMIDE NEB SOLN 0.02% 2.5 ML VIAL INH SCH (13:00)
[2021-06-16] MEDS ORDERED: LEVALBUTEROL 1.25MG/0.5ML NEB INH SCH (13:00)
[2021-06-16] MEDS ORDERED: XOPENEX/ATROVENT 1.25mg/0.5MG NEB COMBO NEB SCH (13:00)
[2021-06-16] MEDS ORDERED: SODIUM CHLORIDE 0.9% 1000ML 2,000 ML IV ONE (14:07)
[2021-06-16 14:33] LABS: Base Excess ABG -3.8 mEq/L (-9-1.8); HCO3 ABG 23 mmol/L (19-24); Oxygen Saturation ABG 93.4 % (90-95); PCO2 ABG 48 mmHg (35-46); PO2 ABG 69 mmHg (80-95)
[2021-06-16 14:44] LABS: Allen Test Pos (Pos)
--- NOTE | 2021-06-16 14:53 | Pulmonary Consultation ---
Date of Consultation June 16, 2021 Assessment & Plan (1) Acute respiratory failure: Respiratory failure complication: hypoxia and hypercapnia Qualified Code(s): J96.01 - Acute respiratory failure with hypoxia; J96.02 - Acute respiratory failure with hypercapnia (2) Acute hypercapnic respiratory failure: (3) Pneumonia and influenza: (4) ALESIA (acute kidney injury): (5) RLL pneumonia: Pneumonia type: due to unspecified organism Qualified Code(s): J18.9 - Pneumonia, unspecified organism (6) COPD (chronic obstructive pulmonary disease): COPD type: COPD with acute exacerbation Qualified Code(s): J44.1 - Chronic obstructive pulmonary disease with (acute) exacerbation --Shock Multifactorial Sepsis being the #1 likelihood Other possibilities include pneumothorax as well as auto PEEP --Acute hypercapnic hypoxic respiratory failure Hypoxia is likely from right lower lobe pneumonia possible aspiration versus viral pneumonia Hypercapnia is likely from severe COPD Continue with O2 supplementation to keep O2 saturation between 88-92% Continue with BiPAP. I went down on IPAP to keep the tidal volume around 325 mL 1 would like to avoid steroids in patients will have influenza. But given the patient's severe hypercapnia and hypoxia underlying COPD exacerbation is also playing a role in it is okay to use steroids in the circumstances. --Very severe COPD with emphysema Continue with steroids Nebulizers --DNR/DNI This was confirmed by the was at bedside --Overall prognosis is guarded. Plan: Patient's hypertension could be from sepsis secondary pneumonia Could be from auto PEEP given the patient was on BiPAP Pneumothorax is also a possibility Stat chest x-ray, if the patient has pneumonia we will put a chest tube in I went down on IPAP to 10 continue with EPAP 5. Patient is getting tidal volume around 350 which is good enough for 5 feet 2 inches COPD patient Continue with 2 L of bolus. Can give extra 1 L following that. Patient was already on Solu-Medrol. Random cortisol will be suppressed because of the We will give 200 mg of hydrocortisone x1 dose I will add doxycycline to amoxicillin Case was cussed with Dr. Schultz as well as RN I have personally spent 48 minutes of critical care time in the direct management of this patient. This is a life/limb threatening event. This includes time spent evaluating patient, direct bedside care, chart review, placing orders, interpretation of diagnostic studies, discussion with consultants, patient, and family members, as well as other required patient management activities. This time is exclusive of all separately billable procedures, and teaching time and separate from and in addition to any other critical care service time. Please note the above document was generated using voice recognition software. It may contain grammatical, syntax or spelling errors. History of Present Illness Attending Physician: Berna Schultz MD History of Present Illness 75-year-old female past medical history of severe COPD on 2.5 L oxygen at home, history of COVID-19 pneumonia in May 2020, pulmonary hypertension, diastolic CHF present to the hospital with complaints of shortness of breath Patient was found to be positive for influenza Pulmonary were consulted today as the patient was found to be hypotensive. Patient was also hypercapnic. Nurses already discussed the hypotensive episode with me and I had advised her to give 2 L of bolus while I come and see the patient At the time of examination patient was on BiPAP 14/5. She was getting tidal volume around 450. I went down to IPAP 10 She was lethargic opening her eyes and following simple commands She was on antibiotics amoxicillin. She denies any chest pain, no headache, Patient's was also in the room. Allergies Allergy/AdvReac Type Severity Reaction Status Date / Time grape Allergy Intermediate edema of Verified 06/15/21 16:26 lips Home Medications Medication Instructions Recorded Confirmed Type albuterol sulfate 90 mcg/actuation 2 puff INHALATION Q6H PRN gm 03/14/19 06/15/21 History aerosol inhaler aspirin 81 mg tablet,delayed 81 mg PO QAM tab 03/14/19 06/15/21 History release budesonide-formoterol HFA 160 2 puffs INHALATION BID #1 gm 03/14/19 06/15/21 History mcg-4.5 mcg/actuation aerosol inhaler multivitamin (Daily Multi-Vitamin) 1 tab PO QAM 03/14/19 06/15/21 History ipratropium 20 mcg-albuterol 100 1 puff INHALATION QID 06/17/20 06/15/21 History mcg/actuation mist for inhalation (Combivent Respimat) lisinopril 40 mg tablet 40 mg PO QAM 06/17/20 06/15/21 History oxybutynin chloride 10 mg 10 mg PO QAM 06/17/20 06/15/21 History tablet,extended release 24 hr rosuvastatin 10 mg tablet 10 mg PO QPM 06/17/20 06/15/21 History sertraline 100 mg tablet 100 mg PO QAM 06/17/20 06/15/21 History felodipine 2.5 mg tablet,extended 2.5 mg PO DAILY 06/15/21 06/15/21 History release 24 hr metoprolol succinate 50 mg 50 mg PO BID 06/15/21 06/15/21 History tablet,extended release 24 hr risedronate 35 mg tablet 35 mg PO WK 06/15/21 06/15/21 History Patient History Medical History COPD (chronic obstructive pulmonary disease) COVID-19 Hyperlipidemia Hypertension Surgical History Hx of tubal ligation S/P cholecystectomy Social History Smoking Status: Former smoker Smoking End Date: 2014; Second Hand Exposure: No; Do You Dip or Chew Tobacco: No; Tobacco Cessation Education Requested by Patient: No Hx Alcohol Use: No Hx Substance Use: No Preferred Language: Tristanian Communication Ability: Effective Communication Ability Comment: unable to assess at this time Child Welfare Specialist Required: No Beliefs That Will Affect Care: None marital status: Current Living Situation: Spouse How many Children do You have: 3 Other Information That Helps Us Care for You: No Feels Safe at Home: Yes Safety Concerns: Feels Safe At This Time Assistive Devices: Denture - Upper, Denture - Lower and Glasses Review of Systems Review of Systems: All systems reviewed & are unremarkable except as noted in Subjective Physical Exam Physical Exam: Constitutional: In respiratory distress HEENT: EOMI, PERRLA, no subcu emphysema, trachea midline Respiratory system: Decreased air entry bilaterally, more decreased on the left side, no wheeze, no rhonchi, mild crackles bilateral lower lobes CVS: S1-S2 positive, no murmurs or gallops Abdomen: Soft, nontender, nondistended, positive bowel sounds x4 Extremities: +2 pulses bilaterally radialis/ dorsalis pedis, no cyanosis, no edema Neuro: Lethargic, opens eyes to voice and follows simple commands Psych: Flat mood and affect G/U: Positive Serrano Skin: no rashes, warm and dry Lymphatic: no cervical or axillary lymphadenopathy Results & Data Results & Data ([facility]) Vital Signs (Past 12 Hours) Vital Signs Temp Pulse Pulse Resp BP BP Pulse Ox 06/16/21 14:31 98 H 20 75/42 L 95 06/16/21 14:14 101 H 22 89/58 L 94 06/16/21 14:00 36.3 C L 110 H 32 H 75/46 L 94 06/16/21 12:22 103 H 28 H 95 06/16/21 12:21 103 H 29 H 95 06/16/21 12:18 94/59 L 06/16/21 12:05 36.5 C 104 H 28 H 78/61 L 95 06/16/21 09:09 94 H 41 H 95 06/16/21 07:24 98 H 42 H 94 06/16/21 07:06 99 H 47 H 94 06/16/21 07:00 36.3 C L 96 H 27 H 99/54 L 95 06/16/21 06:47 100 H 25 H 102/70 94 06/16/21 05:56 104 H 26 H 90/61 L 93 06/16/21 03:43 102 H 32 H 95 06/16/21 06:10 06/16/21 06:10 PG Care Time/CCT Total # of Minutes Spent Total Time Spent with Patient: Total time spent is greater than 50% in coordination of care (as documented) at patient's floor/unit and/or counseling patient: Coding Level of Care Code New Pt Critical Care 1st 30-74 mins Patient Type New Diagnoses Acute respiratory failure J96.01; J96.02 Respiratory failure complication: hypoxia and hypercapnia Acute hypercapnic respiratory failure J96.02 Pneumonia and influenza J11.00 ALESIA (acute kidney injury) N17.9 RLL pneumonia J18.9 Pneumonia type: due to unspecified organism COPD (chronic obstructive pulmonary disease) J44.1 COPD type: COPD with acute exacerbation Time Spent (min) 48
[2021-06-16] MEDS ORDERED: HYDROCORTISONE SOD 200 MG in SYRINGE 0 ML IV STA (15:02)
--- NOTE | 2021-06-16 15:10 | XRay Report ---
XR chest 1V portable CLINICAL HISTORY: low b/p; copd TECHNIQUE: Single frontal radiograph of the chest was obtained. Comparison: Comparison is made to chest one view 06/16/2021 FINDINGS: No lines and tubes are seen. The cardiomediastinal silhouette is normal. Emphysematous changes are se en. Right lower lung airspace opacities are seen. No evidence of pleural effusion or pneumothorax. IMPRESSION: Diffuse emphysematous changes with increased density in the right lower lung which may represent atel ectasis with without superimposed aspiration/pneumonia/scarring. ACT 112: Negative or not required by law. Electronically signed by: Gael Girard M.D. 06/16/2021 3:09 PM
[2021-06-16] MEDS ORDERED: CEFEPIME 1,000 MG in SYRINGE 0 ML IV SCH (16:00)
--- NOTE | 2021-06-16 16:38 | Communication Note ---
Date of Service: June 16, 2021 note Called from Nurse that pt ceased to breath. Pt was unresponsive with eyes closed No heart sound, no lung sound noted on auscultation No pulse and no tactile stimuli Pupils no reactive to light Time of :1559 Family was at bedside i talked to them about her prognosis and the disease process family does not want any autopsy to be done certificate will complete and sign MD Antoine
--- NOTE | 2021-06-17 06:53 | Electrocardiogram Report ---
Test Reason : Blood Pressure : / mmHG Vent. Rate : 117 BPM Atrial Rate : 117 BPM P-R Int : 118 ms QRS Dur : 104 ms QT Int : 350 ms P-R-T Axes : 078 065 080 degrees QTc Int : 489 ms Poor data quality, interpretation may be adversely affected Sinus tachycardia Right atrial enlargement Minimal voltage criteria for LVH, may be normal variant Nonspecific ST and T wave abnormality Prolonged QT Abnormal ECG When compared with ECG of 17-JUN-2020 11:42, Criteria for Septal infarct are no longer Present Confirmed by Melo Duran ([id number]) on 06/17/2021 6:53:00 AM Referred By: REFERRED SELF Confirmed By:Melo Duran
[2021-06-23] MEDS ORDERED: RISEDRONATE SODIUM 35 MG TAB PO SCH (06:30)
--- NOTE | 2021-06-25 02:26 | Discharge Summary ---
Date of Service June 16, 2021 Admission HPI Per Admitting Provider Pt is a 75 y/o F with hx of COPD on home oxygen 2.5L, Hx of COVID pneumonia (in 2019), Pulm HTN, HFmrEF, cardiomyopathy, HTN, Anxiety, and Osteoporosis admitted for respiratory failure with hypoxia. Per daughter and pt: pt has been feeling SOB, cough (dry), decreased appetite for 1 week. She denied any fever, chills, N/V, diarrhea or CP. Denied any COVID exposure and received one shot of moderna last month. Admission Exam Per Admitting Provider Cachetic (chronically low BMI), moderate respiratory distress, BiPAP mask in place HEENT: NCAT, EOMI, atraumatic Cardiac: normal S1/S2, no murmur Lungs: diffusely decreased BS with b/l wheezing and rales Abd: ND, soft, NT Skin: no ulcers or rash MSK: no edema Psych: AAOX3 Principal Diagnosis (1) Acute hypercapnic respiratory failure: (2) Hypoxia: (3) Pneumonia and influenza: (4) ALESIA (acute kidney injury): (5) COPD (chronic obstructive pulmonary disease): (6) Hypertension: (7) Hyperlipidemia: Discharge Exam Pt was unresponsive with eyes closed No heart sound, no lung sound noted on auscultation No pulse and no tactile stimuli Pupils no reactive to light Discharge Data Allergies Allergy/AdvReac Type Severity Reaction Status Date / Time grape Allergy Intermediate edema of Verified 06/15/21 16:26 lips Consultations 06/15/21 16:04 ED Decision to Admit Stat 06/16/21 08:51 Consult Nephrology Routine 06/16/21 14:31 Consult Environmental Officer Routine Ordered Studies 06/16/21 US renal/blad retro comp Routine XR chest 1V portable HISTORY: 75 years-old Female Chest Pain Atypical chest pain COMPARISON: Chest radiograph 06/17/2020, chest CT 09/23/2016 TECHNIQUE: Portable AP view of the chest FINDINGS: The cardiomediastinal and hilar silhouettes are unchanged. Emphysema with severe bullous changes of the left lung base again noted. No pneumothorax or large pleural effusion. Patchy airspace opacities of the right lung base, new from prior. Mild interstitial coarsening throughout the right lung has progressed. Degenerative changes of the shoulders and spine. IMPRESSION: 1. Right basilar opacities are suggestive of pneumonia versus aspiration pneumonitis. 2. Severe emphysema. ACT 112: Negative or not required by law. The above report was generated using voice recognition software. It may contain grammatical, syntax or spelling errors. Electronically signed by: Bhargav Gage M.D. 06/15/2021 2:40 PM Dictated:06/15/21 1439 Transcribed: 06/15/211438 RENAL ULTRASOUND CLINICAL HISTORY: elevated creatinine COMPARISON STUDY: None. TECHNIQUE: Sonography of the kidneys and the urinary bladder was performed. FINDINGS: Right kidney measures 7.9 cm in maximal dimension and the left measures 8.5 cm. There is no hydronephrosis. 1.7 cm cyst within the midpole of the right kidney is noted. Renal echogenicity is normal. There is minimal right renal cortical thinning. Urinary bladder is not well visualized on this examination, containing a Serrano catheter. IMPRESSION: No hydronephrosis. ACT 112: Negative or not required by law. Electronically signed by: Dheeraj Alejo M.D. 06/16/2021 12:08 PM Dictated:06/16/21 1207 Transcribed: 06/16/21 120 XR chest 1V portable CLINICAL HISTORY: low o2 TECHNIQUE: Single frontal radiograph of the chest was obtained. Comparison: Comparison is made to chest one view 06/15/2021 FINDINGS: No lines and tubes are seen. The cardiomediastinal silhouette is normal. Diffuse emphysematous changes are seen. No evidence of pleural effusion or pneumothorax. IMPRESSION: No acute chest disease. ACT 112: Negative or not required by law. Electronically signed by: Gael Girard M.D. 06/16/2021 8:40 AM Dictated:06/16/21 0840 Transcribed: 06/16/21839 XR chest 1V portable CLINICAL HISTORY: low b/p; copd TECHNIQUE: Single frontal radiograph of the chest was obtained. Comparison: Comparison is made to chest one view 06/16/2021 FINDINGS: No lines and tubes are seen. The cardiomediastinal silhouette is normal. Emphysematous changes are seen. Right lower lung airspace opacities are seen. No evidence of pleural effusion or pneumothorax. IMPRESSION: Diffuse emphysematous changes with increased density in the right lower lung which may represent atelectasis with without superimposed aspiration/pneumonia/scarring. ACT 112: Negative or not required by law. Electronically signed by: Gael Girard M.D. 06/16/2021 3:09 PM Dictated:06/16/21 1506 Transcribed: 06/16/21 1506 Hospital Course (1) Acute hypercapnic respiratory failure: (2) Hypoxia: (3) Pneumonia and influenza: (4) ALESIA (acute kidney injury): (5) COPD (chronic obstructive pulmonary disease): (6) Hypertension: (7) Hyperlipidemia: Acute on Chronic respiratory failure with hypoxia: -2/2 influenza + bacterial pneumonia -COVID neg -will start the pt on renally dosed Tamiflu (even though it has be more than 72hrs) -MRSA swab is negative -will continue the pt on doxy and cefepime -procal pending - repeat Lactic acid is better -ABG: hypercapnic acidosis ----- due to hx of COPD with hypercapnia and wheezing on exam will continue to the pt on Bipap, duoneb q6hr and solumedrol 40mg Q12hrs -at home pt is on2.5L oxygen - wean Bipap as tolerates - ABG nay AM or when starting to wean off of BiPAP - NPO for now: okay for sip of water/meds with water note Called from Nurse that pt ceased to breath. Pt was unresponsive with eyes closed No heart sound, no lung sound noted on auscultation No pulse and no tactile stimuli Pupils no reactive to light Time of :1553 Family was at bedside i talked to them about her prognosis and the disease process family does not want any autopsy to be done certificate will complete and sign HTN and ALESIA: -low normal BP - will hold Lisinopril for now - trend BMP HFmrEF and elevated pro-BNP: -pt is euvolemic - will continue to metoprolol Anxiety: -c/w Zoloft Urinary incontinence and HLD: -continue home meds DVT ppx: Heparin PT/OT ordered Diet: NPO for now due to severe hypercapnia Code status: Full code Total Time Total Time Spent Total Time Spent (In Minutes): 40 minutes Discharge Plan Discharge Items Patient Disposition: Other Date/Time: 06/16/21 15:53
--- NOTE | 2021-07-07 07:20 | Coding Query ---
CODING QUERY To promote full compliance with coding requirements relating to patient care, provider participation is requested in all cases of supervisor drying and softening uncertainty. Please assist us with the question(s) below: Coding Question(s): Dr. Jack documented in his pulmonary consultation: --Shock Multifactorial Sepsis being the #1 likelihood Other possibilities include pneumothorax as well as auto PEEP Additionally, Dr. Connelly treated for sepsis in the ER. Please indicate below if in your clinical opinion any of this documentation is relevant to the patient's stay. Thank you. Physician's Response(s): Sepsis Thank you Yu Horan Principal Diagnosis: "that condition established after study, to be chiefly responsible for occasioning the admission of the patient to the hospital for care." Co-Existing Principal Diagnosis: "when two or more diagnoses equally meet the criteria for principal diagnosis as determined by the circumstances of admission, diagnostic work up, and/or therapy provided, and the Alphabetic Index, Tabular List, or another coding guideline does not provide sequencing direction, any one of the diagnoses may be sequenced first." "When the physician has documented what appears to be a current diagnosis in the body of the record, but has not included the diagnosis in the final diagnostic statement, the physician should be asked whether the diagnosis should be added." (Source [facility] 2 QTR90. p3-4) CHE
== END 2021-06-16 18:16 | disposition expired | DRG 871 ==
LOC: ED 14:06 → EDINP 16:50 → SUATTDRO 16:50 → 2S 20:31